=== PATIENT | male | born 1940 | race Hispanic/Latino ===

== ENCOUNTER 2018-04-04 02:42 | Emergency (ER) | payer MEDICARE, OTHER ==
[~2018-04-04] VITALS: Ht 175.3 cm; Wt 83.9 kg
[~2018-04-04 02:42] MED LIST: AMLODIPINE BESYL5 MG PO; LOSARTAN POTAS100 MG PO
[2018-04-04 02:59] LABS: INFLUENZAE A&B ANTIGEN (RAPID) NEGATIVE (NEGATIVE); STREPTOCOCCUS GRP A ANTIGEN NEGATIVE (NEGATIVE)
[2018-04-04] MEDS ORDERED: ACETAMINOPHEN/CODEINE 300MG - 30MG TAB PO ONE (03:15)
--- NOTE | 2018-04-04 04:33 | Diagnostic Imaging Report ---
EXAM: CHEST 2 VIEWS, PA and lateral INDICATION: Sore throat, productive cough COMPARISON: None FINDINGS: LINES/TUBES: None LUNGS: No consolidations or edema. PLEURA: No effusions or pneumothorax. HEART AND MEDIASTINUM: The heart is within normal size limits. Tortuous thoracic aorta. Enlarged main pulmonary arteries. BONES AND SOFT TISSUES: No acute findings. IMPRESSION: No evidence of a pneumonia. Signed by: Dr. Noemi Mike M.D. on 04/04/2018 4:29 AM
[2018-04-04] MEDS ORDERED: HYDROCODONE/CHLORPHENIRAMINE 5 ML LIQCR PO STA (04:35)
[2018-04-04 05:56] VITALS: BP 132/84
== END 2018-04-04 05:35 | disposition home or self-care (01) ==
LOC: ER 02:42
DX: R05 Cough (principal); J00 Acute nasopharyngitis [common cold]; J02.9 Acute pharyngitis, unspecified
CPT/HCPCS: 71046; 83518; 87070; 87400; 99283

== ENCOUNTER 2019-06-01 20:01 | Emergency (ER) | payer MEDICARE ==
[~2019-06-01] VITALS: Ht 175.3 cm; Wt 83.9 kg
--- OUTSIDE RECORDS SUMMARY | 2019-06-01 20:04 | XMS REPORT ---
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 Allergies, Adverse Reactions, Alerts This patient has no known allergies or adverse reactions. Medications This patient has no known medications. Results Test Description Test Time Test Comments Text Results Atomic Results Result Comments CHEST 2 VIEWS 2018-04-04 04:28:00 [place] [address] Patient Name: NEETA HERBERT JR MR #: [id number] : 1940 Age/Sex: 77/M Req #: [id number] Adm Physician: Ordered by: RONEL ALEJANDRE MD Report #: [id number] Location: ER Room/Bed: Procedure: [id number] DX/CHEST 2 VIEWS Exam Date: 04/04/18 Exam Time: 0400 REPORT STATUS: Signed EXAM: CHEST 2 VIEWS, PA and lateral INDICATION: Sore throat, productive cough COMPARISON: None FINDINGS: LINES/TUBES: None LUNGS: No consolidations or edema. PLEURA: No effusions or pneumothorax. HEART AND MEDIASTINUM: The heart is within normal size limits. Tortuous thoracic aorta. Enlarged main pulmonary arteries. BONES AND SOFT TISSUES: No acute findings. IMPRESSION: No evidence of a pneumonia. Si gned by: Dr. Maria Esther Mike M.D. on 04/04/2018 4:29 AM Dictated By: MARIA ESTHER MIKE MD 8 Transcribed By: ADELIA on 04/04/18428 COPY TO: RONEL ALEJANDRE MD
[2019-06-01 21:10] LABS: CLARITY,URINE CLEAR (CLEAR); COLOR,URINE YELLOW (YELLOW)
[2019-06-01 21:11] LABS: BILIRUBIN,URINE NEGATIVE (NEGATIVE); KETONES,URINE NEGATIVE (NEGATIVE); LEUKOCYTE ESTERASE ,URINE NEGATIVE (NEGATIVE); NITRITE,URINE NEGATIVE (NEGATIVE); PROTEIN,URINE DIPSTICK NEGATIVE (NEGATIVE); URINE UROBILINOGEN 0.2 mg/dL (0.2 - 1)
[2019-06-01 21:41] LABS: EPITHELIAL CELLS,URINE RARE /LPF; RBC,URINE 0-5 /HPF (0-5)
== END 2019-06-01 22:30 | disposition home or self-care (01) ==
LOC: ER 20:01
DX: R33.9 Retention of urine, unspecified (principal); I10 Essential (primary) hypertension
CPT/HCPCS: 51700; 81001; 87086; 99282

== ENCOUNTER 2020-11-11 10:08 | Emergency (ER) | payer MEDICARE ==
[~2020-11-11] VITALS: Ht 175.3 cm; Wt 83.9 kg
[2020-11-11 10:44] LABS: BASOPHILS # (AUTO) 0.1 (0.0-0.1); BASOPHILS % 0.9 % (0.0-1.0); EOSINOPHILS # (AUTO) 0.1 (0.0-0.4); EOSINOPHILS % 0.9 % (0.0-6.0); HEMATOCRIT 45.2 % (38.2-49.6); HEMOGLOBIN 14.8 g/dL (14.0-18.0); LYMPHOCYTES # (AUTO) 1.2 (1.0-3.2); LYMPHOCYTES % 21.5 % (18.0-39.1); MEAN CORPUSCULAR HEMOGLOBIN 29.8 pg (28-32); MEAN CORPUSCULAR HGB CONC 32.7 g/dL (31-35); MEAN CORPUSCULAR VOLUME 91.1 fL (81-99); MONOCYTES # (AUTO) 0.4 (0.2-0.8); MONOCYTES % 7.3 % (4.4-11.3); NEUTROPHILS # (AUTO) 3.9 (2.1-6.9); PLATELET COUNT 175 x10e3/uL (140-360); RED BLOOD COUNT 4.96 x10e6/uL (4.3-5.7); RED CELL DISTRIBUTION WIDTH 13.2 % (11.7-14.4)
[2020-11-11 11:04] LABS: ALBUMIN 3.9 g/dL (3.5-5.0); ALBUMIN/GLOBULIN RATIO 1.1 (0.8-2.0); ANION GAP 12.8 mmol/L (8-16); CALCIUM 8.5 mg/dL (8.4-10.2); CREATININE, SERUM 0.74 mg/dL (0.72-1.25); POTASSIUM 3.8 mmol/L (3.5-5.1)
[2020-11-11 11:11] LABS: CREATINE KINASE MB 1.1 ng/mL (0-5.0)
[2020-11-11 15:08] VITALS: BP 144/79
== END 2020-11-11 15:21 | disposition home or self-care (01) ==
LOC: ER 10:30
DX: R55 Syncope and collapse (principal); R42 Dizziness and giddiness; I10 Essential (primary) hypertension
CPT/HCPCS: 36415; 70450; 71045; 80053; 82550; 82553; 84484; 85025; 93005; 99284

== ENCOUNTER 2021-01-04 11:00 | Emergency (ER) | payer MEDICARE ==
[~2021-01-04] VITALS: Ht 175.3 cm; Wt 81.6 kg
[2021-01-04 11:26] LABS: BASOPHILS # (AUTO) 0.1 (0.0-0.1); BASOPHILS % 0.9 % (0.0-1.0); EOSINOPHILS # (AUTO) 0.1 (0.0-0.4); EOSINOPHILS % 0.9 % (0.0-6.0); HEMATOCRIT 46.5 % (38.2-49.6); HEMOGLOBIN 15.1 g/dL (14.0-18.0); LYMPHOCYTES # (AUTO) 1.6 (1.0-3.2); LYMPHOCYTES % 24.8 % (18.0-39.1); MEAN CORPUSCULAR HEMOGLOBIN 29.8 pg (28-32); MEAN CORPUSCULAR HGB CONC 32.5 g/dL (31-35); MEAN CORPUSCULAR VOLUME 91.9 fL (81-99); MONOCYTES # (AUTO) 0.4 (0.2-0.8); MONOCYTES % 6.4 % (4.4-11.3); NEUTROPHILS # (AUTO) 4.4 (2.1-6.9); NEUTROPHILS % 66.7 % (38.7-80.0); PLATELET COUNT 182 x10e3/uL (140-360); RED BLOOD COUNT 5.06 x10e6/uL (4.3-5.7); RED CELL DISTRIBUTION WIDTH 13.2 % (11.7-14.4)
[2021-01-04 11:35] LABS: CLARITY,URINE CLEAR (CLEAR); COLOR,URINE YELLOW (YELLOW); KETONES,URINE TRACE (NEGATIVE); LEUKOCYTE ESTERASE ,URINE NEGATIVE (NEGATIVE); NITRITE,URINE NEGATIVE (NEGATIVE); PROTEIN,URINE DIPSTICK NEGATIVE (NEGATIVE)
[2021-01-04 11:36] LABS: URINE UROBILINOGEN 0.2 mg/dL (0.2 - 1)
[2021-01-04 11:43] LABS: ALBUMIN 4.3 g/dL (3.5-5.0); ALBUMIN/GLOBULIN RATIO 1.3 (0.8-2.0); ANION GAP 13.5 mmol/L (8-16); CALCIUM 8.5 mg/dL (8.4-10.2); CREATININE, SERUM 0.84 mg/dL (0.72-1.25); POTASSIUM 3.5 mmol/L (3.5-5.1)
[2021-01-04 11:44] LABS: MUCUS,URINE FEW (RARE); RBC,URINE 0-5 /HPF (0-5); WBC,URINE (MAN) 0-5 /HPF (0-5)
[2021-01-04 11:51] LABS: CREATINE KINASE MB 0.9 ng/mL (0-5.0)
[2021-01-04 11:54] LABS: INR 0.97; PROTHROMBIN TIME 13.1 seconds (11.9-14.5)
[2021-01-04 11:55] LABS: PARTIAL THROMBOPLASTIN TIME 31.3 seconds (23.8-35.5)
[2021-01-04 13:42] VITALS: BP 143/83
== END 2021-01-04 13:45 | disposition home or self-care (01) ==
LOC: ER 11:22
DX: R42 Dizziness and giddiness (principal); R51.9 Headache, unspecified; E78.5 Hyperlipidemia, unspecified; R94.31 Abnormal electrocardiogram [ECG] [EKG]; Z20.822 Contact with and (suspected) exposure to COVID-19
CPT/HCPCS: 36415; 70450; 71045; 80053; 81001; 82550; 82553; 83735; 84484; 85025; 85610; 85730; 93005; 99284; U0002

== ENCOUNTER → 2021-03-17 | Day surgery (SDC) | payer MEDICARE ==
[2021-03-12 14:15] LABS: BASOPHILS # (AUTO) 0.1 (0.0-0.1); BASOPHILS % 0.9 % (0.0-1.0); EOSINOPHILS # (AUTO) 0.1 (0.0-0.4); EOSINOPHILS % 1.4 % (0.0-6.0); HEMATOCRIT 46.2 % (38.2-49.6); HEMOGLOBIN 14.8 g/dL (14.0-18.0); LYMPHOCYTES # (AUTO) 1.3 (1.0-3.2); LYMPHOCYTES % 22.6 % (18.0-39.1); MEAN CORPUSCULAR HEMOGLOBIN 30.2 pg (28-32); MEAN CORPUSCULAR VOLUME 94.3 fL (81-99); MONOCYTES # (AUTO) 0.5 (0.2-0.8); MONOCYTES % 7.8 % (4.4-11.3); NEUTROPHILS # (AUTO) 3.9 (2.1-6.9); NEUTROPHILS % 67.1 % (38.7-80.0); PLATELET COUNT 172 x10e3/uL (140-360); RED CELL DISTRIBUTION WIDTH 13.5 % (11.7-14.4)
[2021-03-12 14:37] LABS: ALBUMIN 3.9 g/dL (3.5-5.0); ALBUMIN/GLOBULIN RATIO 1.2 (0.8-2.0); ALKALINE PHOSPHATASE 86 IU/L (40-150); ANION GAP 15.7 mmol/L (8-16); BLOOD UREA NITROGEN 11 mg/dL (7-26); BUN/CREATININE RATIO 11 (6-25); CALCIUM 8.8 mg/dL (8.4-10.2); CARBON DIOXIDE 26 mmol/L (22-29); CHLORIDE 105 mmol/L (98-107); CREATININE, SERUM 0.96 mg/dL (0.72-1.25); EST GLOMERULAR FILTRATION RATE 76 ML/MIN (60-); GLUCOSE 92 mg/dL (74-118); POTASSIUM 4.7 mmol/L (3.5-5.1); SODIUM 142 mmol/L (136-145)
[2021-03-12 14:39] LABS: ALANINE AMINOTRANSFERASE < 6 IU/L (0-55)
[~2021-03-17] VITALS: Ht 172.7 cm; Wt 81.6 kg
[2021-03-17] VITALS (9 sets, daily range): BP systolic 132–186; BP diastolic 79–103
[~2021-03-17] MED LIST changes: +ALPRAZOLAM 0.5 MG TAB ONE; +ATORVASTATIN CA40 MG PO; +DIPHENHYDRAMINE HCL 25 MG CAP ONE; +FENTANYL CITRATE/PF 100MCG/2 ML INJ ONE; +HEPARIN SOD (PORCINE) 1000 UNIT/ML 30ML ONE; +HEPARIN SOD/SOD CHLORIDE 2,000 ML ONE; +IOPAMIDOL 370 MG/ML 200 ML INFUS..BTL INJ ONE; +LIDOCAINE HCL 2% LOCAL 20 ML VIAL ONE; +METOPROLOL SUCC50 MG PO; +MIDAZOLAM HCL 2 MG/2 ML VIAL ONE; +NITROGLYCERIN/D5W 200 MCG/ML 250 ML ONE; +SODIUM CHLORIDE 0.9% 1000ML 1,000 ML ONE; +VERAPAMIL HCL 2.5 MG/ML 2 ML VIAL ONE
== END | disposition home or self-care (01) ==
LOC: CATH LAB 11:05
PROVIDERS: ATTEND Internal Medicine Interventional Cardiology
DX: I25.119 Atherosclerotic heart disease of native coronary artery with unspecified angina pectoris (principal); I50.22 Chronic systolic (congestive) heart failure; R03.0 Elevated blood-pressure reading, without diagnosis of hypertension; Z01.812 Encounter for preprocedural laboratory examination; Z20.822 Contact with and (suspected) exposure to COVID-19; Z79.899 Other long term (current) drug therapy; Z82.49 Family history of ischemic heart disease and other diseases of the circulatory system
CPT/HCPCS: 36415; 76937; 80053; 83880; 85025; 93458; C1887; C1894; J1644; J2001; J2250; J3010; J7030; Q9967; U0002; 99152; 99153

== ENCOUNTER 2021-03-24 18:13 | Inpatient (IN) | payer MEDICARE ==
[~2021-03-24] VITALS: Ht 172.7 cm; Wt 76.2 kg
[~2021-03-24 18:13] MED LIST changes: -ALPRAZOLAM 0.5 MG TAB ONE; -ATORVASTATIN CA40 MG PO; -DIPHENHYDRAMINE HCL 25 MG CAP ONE; -FENTANYL CITRATE/PF 100MCG/2 ML INJ ONE; -HEPARIN SOD (PORCINE) 1000 UNIT/ML 30ML ONE; -HEPARIN SOD/SOD CHLORIDE 2,000 ML ONE; -IOPAMIDOL 370 MG/ML 200 ML INFUS..BTL INJ ONE; -LIDOCAINE HCL 2% LOCAL 20 ML VIAL ONE; -MIDAZOLAM HCL 2 MG/2 ML VIAL ONE; -NITROGLYCERIN/D5W 200 MCG/ML 250 ML ONE; -SODIUM CHLORIDE 0.9% 1000ML 1,000 ML ONE; -VERAPAMIL HCL 2.5 MG/ML 2 ML VIAL ONE
[2021-03-24] MEDS ORDERED: SODIUM CHLORIDE 0.9% 1000ML 1,000 ML IV STA (18:22)
[2021-03-24 18:41] LABS: BASOPHILS # (AUTO) 0.1 (0.0-0.1); EOSINOPHILS # (AUTO) 0.1 (0.0-0.4); EOSINOPHILS % 1.6 % (0.0-6.0); HEMOGLOBIN 15.4 g/dL (14.0-18.0); LYMPHOCYTES # (AUTO) 1.7 (1.0-3.2); LYMPHOCYTES % 25.5 % (18.0-39.1); MEAN CORPUSCULAR HEMOGLOBIN 30.1 pg (28-32); MEAN CORPUSCULAR HGB CONC 32.1 g/dL (31-35); MEAN CORPUSCULAR VOLUME 93.8 fL (81-99); MONOCYTES # (AUTO) 0.5 (0.2-0.8); MONOCYTES % 7.5 % (4.4-11.3); NEUTROPHILS # (AUTO) 4.3 (2.1-6.9); NEUTROPHILS % 64.1 % (38.7-80.0); PLATELET COUNT 180 x10e3/uL (140-360); RED BLOOD COUNT 5.12 x10e6/uL (4.3-5.7); RED CELL DISTRIBUTION WIDTH 13.2 % (11.7-14.4)
[2021-03-24 19:02] LABS: ALBUMIN 3.8 g/dL (3.5-5.0); ALBUMIN/GLOBULIN RATIO 1.2 (0.8-2.0); ALKALINE PHOSPHATASE 91 IU/L (40-150); ANION GAP 13.9 mmol/L (8-16); BLOOD UREA NITROGEN 12 mg/dL (7-26); BUN/CREATININE RATIO 13 (6-25); CALCIUM 8.1 mg/dL (8.4-10.2); CARBON DIOXIDE 24 mmol/L (22-29); CHLORIDE 107 mmol/L (98-107); CREATININE, SERUM 0.89 mg/dL (0.72-1.25); EST GLOMERULAR FILTRATION RATE 82 ML/MIN (60-); GLUCOSE 109 mg/dL (74-118); LIPASE 17 U/L (8-78); POTASSIUM 3.9 mmol/L (3.5-5.1); SODIUM 141 mmol/L (136-145)
[2021-03-24 19:03] LABS: ALANINE AMINOTRANSFERASE < 6 IU/L (0-55)
[2021-03-24] MEDS ORDERED: SODIUM CHLORIDE 0.9% 50ML 50 ML ONE (19:25)
[2021-03-24] MEDS ORDERED: IOPAMIDOL 370 MG/ML 200 ML INFUS..BTL INJ ONE (19:26)
[2021-03-24 22:26] LABS: BASOPHILS # (AUTO) 0.1 (0.0-0.1); BASOPHILS % 0.8 % (0.0-1.0); EOSINOPHILS # (AUTO) 0.1 (0.0-0.4); EOSINOPHILS % 0.7 % (0.0-6.0); HEMATOCRIT 45.8 % (38.2-49.6); HEMOGLOBIN 14.8 g/dL (14.0-18.0); LYMPHOCYTES # (AUTO) 1.4 (1.0-3.2); LYMPHOCYTES % 18.5 % (18.0-39.1); MEAN CORPUSCULAR HEMOGLOBIN 30.1 pg (28-32); MEAN CORPUSCULAR HGB CONC 32.3 g/dL (31-35); MEAN CORPUSCULAR VOLUME 93.3 fL (81-99); MONOCYTES # (AUTO) 0.5 (0.2-0.8); MONOCYTES % 6.3 % (4.4-11.3); NEUTROPHILS # (AUTO) 5.6 (2.1-6.9); NEUTROPHILS % 73.6 % (38.7-80.0); PLATELET COUNT 194 x10e3/uL (140-360); RED BLOOD COUNT 4.91 x10e6/uL (4.3-5.7); RED CELL DISTRIBUTION WIDTH 13.2 % (11.7-14.4)
[2021-03-24 22:30] VITALS: BP 154/90
[2021-03-24 23:00] VITALS: BP 154/90
[2021-03-24 23:15] VITALS: BP 154/90
[2021-03-24] MEDS: SODIUM CHLORIDE 0.9% 1000ML 1,000 ML IV SCH (23:50)
[2021-03-25] VITALS (24 sets, daily range): BP systolic 120–161; BP diastolic 68–99
[2021-03-25 02:01] LABS: HEMATOCRIT 38.2 % (38.2-49.6); HEMOGLOBIN 12.3 g/dL (14.0-18.0)
[2021-03-25 02:10] LABS: INR 1.05; PARTIAL THROMBOPLASTIN TIME 30.9 seconds (23.8-35.5); PROTHROMBIN TIME 14.6 seconds (11.9-14.5)
[2021-03-25] MEDS ORDERED: LIDOCAINE HCL 2% LOCAL 20 ML VIAL ONE (04:08)
[2021-03-25] MEDS ORDERED: FENTANYL CITRATE/PF 100MCG/2 ML INJ ONE (04:08)
[2021-03-25] MEDS ORDERED: MIDAZOLAM HCL 2 MG/2 ML VIAL ONE (04:08)
[2021-03-25] MEDS ORDERED: SODIUM CHLORIDE 0.9% 1000ML 1,000 ML ONE (04:09)
[2021-03-25] MEDS ORDERED: IOPAMIDOL 300MG/ML 100 ML INFUS..BTL IV ONE ×2 (04:54→05:24)
[2021-03-25] MEDS ORDERED: PHYTONADIONE 10 MG/ML AMP IV ONE (10:00)
[2021-03-25] MEDS ORDERED: PHYTONADIONE 10MG/ML 20 MG in SODIUM CHLORIDE 0.9% 50ML 50 ML IV ONE (10:25)
[2021-03-25] MEDS ORDERED: ATORVASTATIN CA40 MG PO (11:05)
[2021-03-25] MEDS: LOSARTAN POTASSIUM 100 MG TAB PO SCH (11:15)
[2021-03-25 12:23] LABS: HEMATOCRIT 35.3 % (38.2-49.6); HEMOGLOBIN 11.1 g/dL (14.0-18.0)
[2021-03-25] MEDS: SODIUM CHLORIDE 0.9% 1000ML 1,000 ML IV SCH ×2 (17:55→20:06)
[2021-03-25] MEDS: BISACODYL 5 MG TAB EC PO PRN ×2 (20:06→21:37)
[2021-03-25] MEDS: ATORVASTATIN 40 MG TAB PO SCH (20:12)
[2021-03-26] VITALS (26 sets, daily range): BP systolic 89–174; BP diastolic 49–114
[2021-03-26] MEDS: SODIUM CHLORIDE 0.9% 1000ML 1,000 ML IV SCH ×3 (04:45→19:24)
[2021-03-26] MEDS ORDERED: CITRATE OF MAGNESIA 300ML BOTTLE PO ONE ×2 (05:00→07:00)
[2021-03-26 05:05] LABS: BASOPHILS # (AUTO) 0.1 (0.0-0.1); BASOPHILS % 0.7 % (0.0-1.0); EOSINOPHILS # (AUTO) 0.1 (0.0-0.4); EOSINOPHILS % 1.2 % (0.0-6.0); HEMATOCRIT 31.9 % (38.2-49.6); HEMOGLOBIN 10.2 g/dL (14.0-18.0); LYMPHOCYTES # (AUTO) 1.1 (1.0-3.2); LYMPHOCYTES % 14.6 % (18.0-39.1); MEAN CORPUSCULAR HEMOGLOBIN 30.2 pg (28-32); MEAN CORPUSCULAR VOLUME 94.4 fL (81-99); MONOCYTES # (AUTO) 0.5 (0.2-0.8); MONOCYTES % 6.3 % (4.4-11.3); NEUTROPHILS # (AUTO) 5.6 (2.1-6.9); NEUTROPHILS % 76.9 % (38.7-80.0); PLATELET COUNT 158 x10e3/uL (140-360); RED BLOOD COUNT 3.38 x10e6/uL (4.3-5.7); RED CELL DISTRIBUTION WIDTH 13.4 % (11.7-14.4)
[2021-03-26 05:17] LABS: INR 1.08; PROTHROMBIN TIME 14.9 seconds (11.9-14.5)
[2021-03-26 05:33] LABS: ALBUMIN/GLOBULIN RATIO 1.3 (0.8-2.0); ALKALINE PHOSPHATASE 67 IU/L (40-150); ANION GAP 11.4 mmol/L (8-16); BLOOD UREA NITROGEN 9 mg/dL (7-26); BUN/CREATININE RATIO 11 (6-25); CALCIUM 7.9 mg/dL (8.4-10.2); CARBON DIOXIDE 25 mmol/L (22-29); CHLORIDE 109 mmol/L (98-107); CREATININE, SERUM 0.79 mg/dL (0.72-1.25); EST GLOMERULAR FILTRATION RATE 95 ML/MIN (60-); GLUCOSE 112 mg/dL (74-118); POTASSIUM 3.4 mmol/L (3.5-5.1); SODIUM 142 mmol/L (136-145)
[2021-03-26 06:28] LABS: ALANINE AMINOTRANSFERASE < 6 IU/L (0-55)
[2021-03-26] MEDS ORDERED: ONDANSETRON HCL INJ 2MG/ML 2ML 2 MG/ML VIAL IV PRN (07:45)
[2021-03-26] MEDS ORDERED: METOPROLOL SUCCINATE 50 MG TAB XL PO SCH (09:00)
[2021-03-26] MEDS ORDERED: PHYTONADIONE 10 MG/ML AMP IV ONE (09:00)
[2021-03-26] MEDS ORDERED: MIDAZOLAM HCL 2 MG/2 ML VIAL ONE (13:56)
[2021-03-26] MEDS ORDERED: FENTANYL CITRATE/PF 100MCG/2 ML INJ ONE (13:56)
[2021-03-26] MEDS ORDERED: SODIUM CHLORIDE 0.9% 250ML 250 ML ONE ×3 (14:07→21:17)
[2021-03-26] MEDS ORDERED: HYOSCYAMINE SULFATE 0.5 MG/ML INJ ONE (16:03)
[2021-03-26] MEDS ORDERED: PROPOFOL IV EMULSION 10 MG/ML 20 ML VIAL ONE (17:27)
[2021-03-26] MEDS ORDERED: GLUCAGON FOR INJ 1 MG VIAL ONE (17:27)
[2021-03-26] MEDS: ATORVASTATIN 40 MG TAB PO SCH (20:02)
[2021-03-26] MEDS: LOSARTAN POTASSIUM 100 MG TAB PO SCH (20:15)
[2021-03-27] VITALS (16 sets, daily range): BP systolic 117–152; BP diastolic 65–88
[2021-03-27 05:00] LABS: HEMATOCRIT 25.9 % (38.2-49.6); HEMOGLOBIN 8.2 g/dL (14.0-18.0); MEAN CORPUSCULAR HGB CONC 31.7 g/dL (31-35); MEAN CORPUSCULAR VOLUME 94.9 fL (81-99); PLATELET COUNT 141 x10e3/uL (140-360); RED BLOOD COUNT 2.73 x10e6/uL (4.3-5.7); RED CELL DISTRIBUTION WIDTH 13.3 % (11.7-14.4)
[2021-03-27 05:17] LABS: INR 1.06; PROTHROMBIN TIME 14.7 seconds (11.9-14.5)
[2021-03-27] MEDS: SODIUM CHLORIDE 0.9% 1000ML 1,000 ML IV SCH ×2 (05:24→12:45)
[2021-03-27 05:26] LABS: ALBUMIN 3.2 g/dL (3.5-5.0); ALBUMIN/GLOBULIN RATIO 1.5 (0.8-2.0); ANION GAP 12.3 mmol/L (8-16); CALCIUM 7.6 mg/dL (8.4-10.2); CREATININE, SERUM 0.76 mg/dL (0.72-1.25); POTASSIUM 3.3 mmol/L (3.5-5.1)
[2021-03-27 08:51] LABS: EOSINOPHILS % (MANUAL) 1 % (0-7); LYMPHOCYTES % (MANUAL) 20 % (19-48); MONOCYTES % (MANUAL) 3 % (3.4-9.0); NEUTROPHILS % (MANUAL) 76 % (40-74); PLATELET ESTIMATE SLIGHTLY DECREASED
[2021-03-27 08:52] LABS: PLATELET MORPHOLOGY COMMENT NORMAL; RBC MORPHOLOGY COMMENT NORMAL
[2021-03-27] MEDS: LOSARTAN POTASSIUM 100 MG TAB PO SCH (08:52)
[2021-03-27] MEDS ORDERED: PHYTONADIONE 5 MG TAB PO ONE (10:15)
[2021-03-27] MEDS ORDERED: PHYTONADIONE 10MG/ML 20 MG in SODIUM CHLORIDE 0.9% 50ML 50 ML IV ONE (10:45)
[2021-03-27] MEDS ORDERED: MIDAZOLAM HCL 2 MG/2 ML VIAL ONE (14:25)
[2021-03-27] MEDS ORDERED: FENTANYL CITRATE/PF 100MCG/2 ML INJ ONE (14:25)
[2021-03-27] MEDS ORDERED: SODIUM CHLORIDE 0.9% 1000ML 1,000 ML ONE (14:39)
[2021-03-27] MEDS ORDERED: IOPAMIDOL 300MG/ML 100 ML INFUS..BTL IV ONE (14:39)
[2021-03-27] MEDS ORDERED: LIDOCAINE HCL 1% LOCAL INJ 20 ML VIAL ONE (14:42)
[2021-03-27] MEDS ORDERED: POTASSIUM CHLORIDE 20MEQ/100ML 100 ML IV PRN (15:30)
[2021-03-27 17:07] LABS: HEMATOCRIT 25.9 % (38.2-49.6); HEMOGLOBIN 8.1 g/dL (14.0-18.0)
[2021-03-27] MEDS ORDERED: SODIUM CHLORIDE 0.9% 250ML 250 ML ONE (21:31)
[2021-03-27] MEDS: ATORVASTATIN 40 MG TAB PO SCH (22:05)
[2021-03-28] VITALS (26 sets, daily range): BP systolic 126–162; BP diastolic 75–92
[2021-03-28 00:23] LABS: INR 1.05; PROTHROMBIN TIME 14.5 seconds (11.9-14.5)
[2021-03-28] MEDS: SODIUM CHLORIDE 0.9% 1000ML 1,000 ML IV SCH ×4 (04:27→20:45)
[2021-03-28 06:37] LABS: BASOPHILS # (AUTO) 0.1 (0.0-0.1); BASOPHILS % 0.8 % (0.0-1.0); EOSINOPHILS # (AUTO) 0.2 (0.0-0.4); EOSINOPHILS % 2.5 % (0.0-6.0); HEMATOCRIT 28.9 % (38.2-49.6); HEMOGLOBIN 9.4 g/dL (14.0-18.0); LYMPHOCYTES # (AUTO) 1.1 (1.0-3.2); MEAN CORPUSCULAR HEMOGLOBIN 30.1 pg (28-32); MEAN CORPUSCULAR HGB CONC 32.5 g/dL (31-35); MEAN CORPUSCULAR VOLUME 92.6 fL (81-99); MONOCYTES # (AUTO) 0.4 (0.2-0.8); NEUTROPHILS # (AUTO) 4.3 (2.1-6.9); PLATELET COUNT 127 x10e3/uL (140-360); RED BLOOD COUNT 3.12 x10e6/uL (4.3-5.7); RED CELL DISTRIBUTION WIDTH 14.2 % (11.7-14.4)
[2021-03-28 06:56] LABS: ALANINE AMINOTRANSFERASE 8 IU/L (0-55); ALBUMIN 3.4 g/dL (3.5-5.0); ALBUMIN/GLOBULIN RATIO 1.5 (0.8-2.0); ALKALINE PHOSPHATASE 67 IU/L (40-150); ANION GAP 12.6 mmol/L (8-16); CALCIUM 7.6 mg/dL (8.4-10.2); CARBON DIOXIDE 28 mmol/L (22-29); CHLORIDE 107 mmol/L (98-107); CREATININE, SERUM 0.72 mg/dL (0.72-1.25); EST GLOMERULAR FILTRATION RATE 105 ML/MIN (60-); GLUCOSE 104 mg/dL (74-118); POTASSIUM 3.6 mmol/L (3.5-5.1); SODIUM 144 mmol/L (136-145)
[2021-03-28 07:00] LABS: BUN/CREATININE RATIO 7 (6-25)
[2021-03-28 07:18] LABS: BLOOD UREA NITROGEN < 5 mg/dL (7-26)
[2021-03-28] MEDS: LOSARTAN POTASSIUM 100 MG TAB PO SCH (08:09)
[2021-03-28] MEDS ORDERED: PHYTONADIONE 10 MG/ML AMP IV ONE (09:30)
[2021-03-28] MEDS ORDERED: PHYTONADIONE 10MG/ML 20 MG in SODIUM CHLORIDE 0.9% 50ML 50 ML SC ONE (10:00)
[2021-03-28] MEDS ORDERED: SODIUM CHLORIDE 0.9% 250ML 250 ML ONE ×3 (10:27→21:40)
[2021-03-28] MEDS ORDERED: SODIUM CHLORIDE 0.9% 250ML 250 ML IV ONE (11:45)
[2021-03-28 15:53] LABS: HEMATOCRIT 28.8 % (38.2-49.6); HEMOGLOBIN 9.3 g/dL (14.0-18.0)
[2021-03-28] MEDS: ATORVASTATIN 40 MG TAB PO SCH (21:22)
[2021-03-29] VITALS (25 sets, daily range): BP systolic 108–163; BP diastolic 58–115
[2021-03-29 01:20] LABS: HEMATOCRIT 28.4 % (38.2-49.6)
[2021-03-29] MEDS ORDERED: METOPROLOL TARTRATE INJ 1 MG/ML VIAL IV PRN (02:00)
[2021-03-29 02:14] LABS: HEMOGLOBIN 9.4 g/dL (14.0-18.0)
[2021-03-29 05:50] LABS: ANION GAP 13.5 mmol/L (8-16); BLOOD UREA NITROGEN < 5 mg/dL (7-26); CALCIUM 8.5 mg/dL (8.4-10.2); CARBON DIOXIDE 28 mmol/L (22-29); CHLORIDE 106 mmol/L (98-107); CREATININE, SERUM 0.73 mg/dL (0.72-1.25); EST GLOMERULAR FILTRATION RATE 104 ML/MIN (60-); GLUCOSE 104 mg/dL (74-118); POTASSIUM 3.5 mmol/L (3.5-5.1); SODIUM 144 mmol/L (136-145)
[2021-03-29 06:21] LABS: BUN/CREATININE RATIO 7 (6-25)
[2021-03-29] MEDS: LOSARTAN POTASSIUM 100 MG TAB PO SCH (08:22)
[2021-03-29] MEDS: IRON SUCROSE 100 MG in SODIUM CHLORIDE 0.9% 100 ML 100 ML IV SCH (10:17)
[2021-03-29] MEDS ORDERED: POTASSIUM CHLORIDE 20 MEQ TAB CR PO ONE (16:30)
[2021-03-29] MEDS: METOPROLOL TARTRATE 25 MG TAB PO SCH (17:43)
[2021-03-29] MEDS: ATORVASTATIN 40 MG TAB PO SCH (21:10)
[2021-03-30] VITALS (12 sets, daily range): BP systolic 96–147; BP diastolic 55–83
[2021-03-30 06:19] LABS: BASOPHILS # (AUTO) 0.1 (0.0-0.1); BASOPHILS % 0.7 % (0.0-1.0); EOSINOPHILS # (AUTO) 0.2 (0.0-0.4); EOSINOPHILS % 2.2 % (0.0-6.0); HEMATOCRIT 31.6 % (38.2-49.6); HEMOGLOBIN 10.5 g/dL (14.0-18.0); LYMPHOCYTES % 13.7 % (18.0-39.1); MEAN CORPUSCULAR HEMOGLOBIN 30.3 pg (28-32); MEAN CORPUSCULAR HGB CONC 33.2 g/dL (31-35); MEAN CORPUSCULAR VOLUME 91.3 fL (81-99); MONOCYTES # (AUTO) 0.5 (0.2-0.8); MONOCYTES % 7.5 % (4.4-11.3); NEUTROPHILS # (AUTO) 5.5 (2.1-6.9); NEUTROPHILS % 75.6 % (38.7-80.0); PLATELET COUNT 184 x10e3/uL (140-360); RED BLOOD COUNT 3.46 x10e6/uL (4.3-5.7); RED CELL DISTRIBUTION WIDTH 13.9 % (11.7-14.4)
[2021-03-30 06:44] LABS: ANION GAP 12.7 mmol/L (8-16); CALCIUM 8.8 mg/dL (8.4-10.2); CREATININE, SERUM 0.72 mg/dL (0.72-1.25); POTASSIUM 3.7 mmol/L (3.5-5.1)
[2021-03-30] MEDS: IRON SUCROSE 100 MG in SODIUM CHLORIDE 0.9% 100 ML 100 ML IV SCH (09:39)
[2021-03-30] MEDS: LOSARTAN POTASSIUM 100 MG TAB PO SCH (09:39)
[2021-03-30] MEDS: METOPROLOL TARTRATE 25 MG TAB PO SCH ×2 (09:40→17:00)
[2021-03-30] MEDS ORDERED: LOPRESSOR25 MG PO (09:54)
[2021-03-30] MEDS: SODIUM CHLORIDE 0.9% 1000ML 1,000 ML IV SCH (21:16)
[2021-03-30] MEDS: ATORVASTATIN 40 MG TAB PO SCH (21:22)
[2021-03-31] VITALS: BP 108/57
[2021-03-31 04:00] VITALS: BP 118/76
[2021-03-31 04:55] LABS: BASOPHILS # (AUTO) 0.1 (0.0-0.1); BASOPHILS % 0.8 % (0.0-1.0); EOSINOPHILS # (AUTO) 0.2 (0.0-0.4); HEMOGLOBIN 9.9 g/dL (14.0-18.0); MEAN CORPUSCULAR HGB CONC 31.9 g/dL (31-35); MEAN CORPUSCULAR VOLUME 93.9 fL (81-99); MONOCYTES # (AUTO) 0.6 (0.2-0.8); MONOCYTES % 8.1 % (4.4-11.3); NEUTROPHILS # (AUTO) 5.7 (2.1-6.9); NEUTROPHILS % 75.7 % (38.7-80.0); PLATELET COUNT 193 x10e3/uL (140-360); RED CELL DISTRIBUTION WIDTH 13.7 % (11.7-14.4)
[2021-03-31 05:18] LABS: ANION GAP 11.9 mmol/L (8-16); CALCIUM 8.2 mg/dL (8.4-10.2); CREATININE, SERUM 0.82 mg/dL (0.72-1.25); POTASSIUM 3.9 mmol/L (3.5-5.1)
[2021-03-31 07:00] VITALS: BP 138/79
[2021-03-31 07:16] VITALS: BP 138/79
[2021-03-31] MEDS: IRON SUCROSE 100 MG in SODIUM CHLORIDE 0.9% 100 ML 100 ML IV SCH (07:34)
[2021-03-31] MEDS: LOSARTAN POTASSIUM 100 MG TAB PO SCH (07:34)
[2021-03-31] MEDS: METOPROLOL TARTRATE 25 MG TAB PO SCH (07:35)
[2021-03-31] MEDS ORDERED: TOPROL XL50 MG PO ×2 (08:38→08:46)
== END 2021-03-31 10:01 | disposition home or self-care (01) | DRG 378 ==
LOC: ER 18:26 → ERHOLD 20:47 → ICU 22:29 → OBSVTOIN 03-25 10:58 → MED/SURG2 03-27 05:01 → ICU 03-27 16:00
PROVIDERS: ADMIT Internal Medicine; ATTEND Internal Medicine
PROC: 02HV33Z Insertion of Infusion Device into Superior Vena Cava, Percutaneous Approach (ICD-10-PCS; 2021-03-25)
PROC: B4151ZZ Fluoroscopy of Inferior Mesenteric Artery using Low Osmolar Contrast (ICD-10-PCS; 2021-03-25)
PROC: B4141ZZ Fluoroscopy of Superior Mesenteric Artery using Low Osmolar Contrast (ICD-10-PCS; 2021-03-25)
PROC: 0DBN8ZZ Excision of Sigmoid Colon, Via Natural or Artificial Opening Endoscopic (ICD-10-PCS; 2021-03-26)
PROC: 30233L1 Transfusion of Nonautologous Fresh Plasma into Peripheral Vein, Percutaneous Approach (ICD-10-PCS; 2021-03-26)
PROC: 30233K1 Transfusion of Nonautologous Frozen Plasma into Peripheral Vein, Percutaneous Approach (ICD-10-PCS; 2021-03-26)
PROC: 0DBM8ZZ Excision of Descending Colon, Via Natural or Artificial Opening Endoscopic (ICD-10-PCS; principal; 2021-03-26 15:30)
PROC: B4151ZZ Fluoroscopy of Inferior Mesenteric Artery using Low Osmolar Contrast (ICD-10-PCS; 2021-03-27)
PROC: B4141ZZ Fluoroscopy of Superior Mesenteric Artery using Low Osmolar Contrast (ICD-10-PCS; 2021-03-27)
PROC: 30233N1 Transfusion of Nonautologous Red Blood Cells into Peripheral Vein, Percutaneous Approach (ICD-10-PCS; 2021-03-28)
PROC: 30233R1 Transfusion of Nonautologous Platelets into Peripheral Vein, Percutaneous Approach (ICD-10-PCS; 2021-03-28)
DX: K57.31 Diverticulosis of large intestine without perforation or abscess with bleeding (principal); I50.22 Chronic systolic (congestive) heart failure; I47.1 Supraventricular tachycardia; K63.5 Polyp of colon; K64.9 Unspecified hemorrhoids; I25.10 Atherosclerotic heart disease of native coronary artery without angina pectoris; I11.0 Hypertensive heart disease with heart failure; I44.7 Left bundle-branch block, unspecified; Z20.822 Contact with and (suspected) exposure to COVID-19
CPT/HCPCS: 36415; 36569; 71045; 74174; 74470; 75625; 75726; 76937; 80048; 80053; 82607; 82746; 83690; 83735; 85007; 85014; 85018; 85025; 85027; 85610; 85730; 86850; 86900; 86920; 88305; 93005; 94799; 97139; 99152; 99153; 99251; 99284; C1769; C1887; C1894; G0378; J1610; J1756; J1980; J2001; J2250; J2405; J3010; J3430; J3480; J7030; J7050; P9012; P9016; P9017; P9034; Q9967; U0002

== ENCOUNTER → 2021-04-29 | Day surgery (SDC) | payer MEDICARE ==
[2021-04-24 09:37] LABS: BASOPHILS % 0.8 % (0.0-1.0); EOSINOPHILS # (AUTO) 0.1 (0.0-0.4); EOSINOPHILS % 2.3 % (0.0-6.0); HEMATOCRIT 37.4 % (38.2-49.6); HEMOGLOBIN 11.2 g/dL (14.0-18.0); LYMPHOCYTES # (AUTO) 1.2 (1.0-3.2); LYMPHOCYTES % 22.8 % (18.0-39.1); MEAN CORPUSCULAR HEMOGLOBIN 28.6 pg (28-32); MEAN CORPUSCULAR HGB CONC 29.9 g/dL (31-35); MEAN CORPUSCULAR VOLUME 95.7 fL (81-99); MONOCYTES # (AUTO) 0.4 (0.2-0.8); MONOCYTES % 7.1 % (4.4-11.3); NEUTROPHILS # (AUTO) 3.5 (2.1-6.9); NEUTROPHILS % 66.8 % (38.7-80.0); PLATELET COUNT 187 x10e3/uL (140-360); RED BLOOD COUNT 3.91 x10e6/uL (4.3-5.7); RED CELL DISTRIBUTION WIDTH 13.2 % (11.7-14.4)
[2021-04-24 10:07] LABS: ANION GAP 7.1 mmol/L (8-16); CALCIUM 9.1 mg/dL (8.4-10.2); CREATININE, SERUM 0.8 mg/dL (0.72-1.25); POTASSIUM 4.1 mmol/L (3.5-5.1)
[2021-04-24 10:14] LABS: INR 0.99; PROTHROMBIN TIME 13.8 seconds (11.9-14.5)
[2021-04-29] VITALS (9 sets, daily range): BP systolic 138–174; BP diastolic 72–91
[~2021-04-29] VITALS: Ht 172.7 cm; Wt 77.1 kg
[~2021-04-29] MED LIST changes: +ATORVASTATIN CA40 MG PO; +FENTANYL CITRATE/PF 100MCG/2 ML INJ ONE; +GENTAMICIN SULFATE 40 MG/ML 2 ML VIAL ONE; +LIDOCAINE HCL 2% LOCAL 20 ML VIAL ONE; +LOPRESSOR25 MG PO; +MIDAZOLAM HCL 2 MG/2 ML VIAL ONE; +SODIUM CHLORIDE 0.9% 1000ML 2,000 ML ONE; +SODIUM CHLORIDE 0.9% 250ML 0 ML ONE; +SODIUM CHLORIDE 0.9% 250ML 250 ML ONE; +SODIUM CHLORIDE 0.9% 500ML 500 ML ONE; +TOPROL XL50 MG PO; +Vancomycin IV 1 GM VIAL ONE
== END | disposition home or self-care (01) ==
LOC: CATH LAB 07:41
PROVIDERS: ATTEND Internal Medicine
DX: I11.0 Hypertensive heart disease with heart failure (principal); I50.42 Chronic combined systolic (congestive) and diastolic (congestive) heart failure; I25.2 Old myocardial infarction; I25.5 Ischemic cardiomyopathy; I44.7 Left bundle-branch block, unspecified; Z01.812 Encounter for preprocedural laboratory examination; Z20.822 Contact with and (suspected) exposure to COVID-19; Z79.899 Other long term (current) drug therapy
CPT/HCPCS: 33225; 33249; 36415; 71045; 75820; 80048; 85025; 85610; C1769 ×2; J1580; J2001; J2250; J3010; J3370; J7030; J7040; J7050; U0002; 99152; 99153

== ENCOUNTER 2021-05-04 10:32 | Emergency (ER) | payer MEDICARE ==
[~2021-05-04] VITALS: Ht 172.7 cm; Wt 77.1 kg
[~2021-05-04 10:32] MED LIST changes: -FENTANYL CITRATE/PF 100MCG/2 ML INJ ONE; -GENTAMICIN SULFATE 40 MG/ML 2 ML VIAL ONE; -LIDOCAINE HCL 2% LOCAL 20 ML VIAL ONE; -MIDAZOLAM HCL 2 MG/2 ML VIAL ONE; -SODIUM CHLORIDE 0.9% 1000ML 2,000 ML ONE; -SODIUM CHLORIDE 0.9% 250ML 0 ML ONE; -SODIUM CHLORIDE 0.9% 250ML 250 ML ONE; -SODIUM CHLORIDE 0.9% 500ML 500 ML ONE; -Vancomycin IV 1 GM VIAL ONE
[2021-05-04] MEDS ORDERED: DILTIAZEM HCL 5 MG/ML 5 ML VIAL IV STA ×2 (10:50→11:22)
[2021-05-04 10:56] LABS: BASOPHILS # (AUTO) 0.1 (0.0-0.1); BASOPHILS % 0.9 % (0.0-1.0); EOSINOPHILS % 0.6 % (0.0-6.0); HEMATOCRIT 42.4 % (38.2-49.6); HEMOGLOBIN 12.8 g/dL (14.0-18.0); LYMPHOCYTES # (AUTO) 1.1 (1.0-3.2); MEAN CORPUSCULAR HEMOGLOBIN 28.1 pg (28-32); MEAN CORPUSCULAR HGB CONC 30.2 g/dL (31-35); MONOCYTES # (AUTO) 0.4 (0.2-0.8); MONOCYTES % 5.4 % (4.4-11.3); NEUTROPHILS # (AUTO) 5.5 (2.1-6.9); NEUTROPHILS % 77.8 % (38.7-80.0); PLATELET COUNT 168 x10e3/uL (140-360); RED BLOOD COUNT 4.56 x10e6/uL (4.3-5.7); RED CELL DISTRIBUTION WIDTH 13.1 % (11.7-14.4)
[2021-05-04] MEDS ORDERED: METOPROLOL TARTRATE INJ 1 MG/ML VIAL IV STA (11:04)
[2021-05-04] MEDS ORDERED: METOPROLOL TARTRATE INJ 1 MG/ML VIAL ONE (11:13)
[2021-05-04 11:14] LABS: ALANINE AMINOTRANSFERASE 7 IU/L (0-55); ALBUMIN 3.8 g/dL (3.5-5.0); ALKALINE PHOSPHATASE 118 IU/L (40-150); ANION GAP 16.6 mmol/L (8-16); BLOOD UREA NITROGEN 11 mg/dL (7-26); BUN/CREATININE RATIO 11 (6-25); CALCIUM 9.6 mg/dL (8.4-10.2); CARBON DIOXIDE 25 mmol/L (22-29); CHLORIDE 105 mmol/L (98-107); CREATINE KINASE 245 IU/L (30-200); CREATININE, SERUM 0.99 mg/dL (0.72-1.25); EST GLOMERULAR FILTRATION RATE 73 ML/MIN (60-); GLUCOSE 126 mg/dL (74-118); POTASSIUM 3.6 mmol/L (3.5-5.1); SODIUM 143 mmol/L (136-145)
[2021-05-04] MEDS ORDERED: DIGOXIN INJ 0.25 MG/ML 2 ML AMP IV STA (11:22)
[2021-05-04 13:30] VITALS: BP 140/81
[2021-05-04 16:57] LABS: PROTHROMBIN TIME 11.1 seconds (11.9-14.5)
[2021-05-04 17:29] LABS: PARTIAL THROMBOPLASTIN TIME 27.4 seconds (23.8-35.5)
== END 2021-05-04 13:32 | disposition home or self-care (01) ==
LOC: ER 10:37
DX: I47.1 Supraventricular tachycardia (principal); I10 Essential (primary) hypertension; I50.9 Heart failure, unspecified; I48.91 Unspecified atrial fibrillation; R94.31 Abnormal electrocardiogram [ECG] [EKG]
CPT/HCPCS: 36415; 71045; 80053; 82550; 82553; 83735; 83880; 84484; 85025; 85610; 85730; 93005; 99284; J1160

== ENCOUNTER → 2021-06-17 | Day surgery (SDC) | payer MEDICARE ==
[2021-06-15 11:45] LABS: BASOPHILS # (AUTO) 0.1 (0.0-0.1); BASOPHILS % 1.5 % (0.0-1.0); EOSINOPHILS # (AUTO) 0.1 (0.0-0.4); HEMOGLOBIN 12.8 g/dL (14.0-18.0); LYMPHOCYTES # (AUTO) 1.2 (1.0-3.2); LYMPHOCYTES % 26.6 % (18.0-39.1); MEAN CORPUSCULAR HEMOGLOBIN 27.5 pg (28-32); MEAN CORPUSCULAR HGB CONC 31.2 g/dL (31-35); MONOCYTES # (AUTO) 0.4 (0.2-0.8); NEUTROPHILS # (AUTO) 2.8 (2.1-6.9); NEUTROPHILS % 60.7 % (38.7-80.0); PLATELET COUNT 153 x10e3/uL (140-360); RED BLOOD COUNT 4.66 x10e6/uL (4.3-5.7)
[~2021-06-17] MED LIST changes: +ASPIRIN81 MG PO; +GLUCAGON FOR INJ 1 MG VIAL ONE; +HYDROCHLOROTHIA25 MG PO; +HYOSCYAMINE SULFATE 0.5 MG/ML INJ ONE; +LIDOCAINE HCL 2% LOCAL INJ 5 ML SDV VIAL INJ ONE; +POVIDONE IODINE 0.05% 0.05 % ML PO ONE; +PRESERVISION A1 EAC3 PO; +PROPOFOL IV EMULSION 10 MG/ML 20 ML VIAL ONE; +VIT B12 INJ
[2021-06-17 14:00] VITALS: BP 120/80
== END | disposition home or self-care (01) ==
LOC: OR 11:14
PROVIDERS: ATTEND Internal Medicine Gastroenterology
DX: D12.2 Benign neoplasm of ascending colon (principal); K57.30 Diverticulosis of large intestine without perforation or abscess without bleeding; K64.8 Other hemorrhoids; I10 Essential (primary) hypertension; E78.5 Hyperlipidemia, unspecified; Z01.810 Encounter for preprocedural cardiovascular examination; Z01.812 Encounter for preprocedural laboratory examination; Z20.822 Contact with and (suspected) exposure to COVID-19; Z79.82 Long term (current) use of aspirin; Z79.899 Other long term (current) drug therapy; Z95.810 Presence of automatic (implantable) cardiac defibrillator
CPT/HCPCS: 36415; 45384; 45385; 85025; 93005; J1610; J1980; J2001; J2704; U0002

== ENCOUNTER 2021-08-11 10:09 | Emergency (ER) | payer MEDICARE ==
[~2021-08-11] VITALS: Ht 172.7 cm; Wt 77.1 kg
[~2021-08-11 10:09] MED LIST changes: -GLUCAGON FOR INJ 1 MG VIAL ONE; -HYOSCYAMINE SULFATE 0.5 MG/ML INJ ONE; -LIDOCAINE HCL 2% LOCAL INJ 5 ML SDV VIAL INJ ONE; -POVIDONE IODINE 0.05% 0.05 % ML PO ONE; -PROPOFOL IV EMULSION 10 MG/ML 20 ML VIAL ONE
[2021-08-11 11:03] LABS: BASOPHILS % 0.9 % (0.0-1.0); EOSINOPHILS # (AUTO) 0.1 (0.0-0.4); EOSINOPHILS % 1.8 % (0.0-6.0); HEMATOCRIT 41.9 % (38.2-49.6); HEMOGLOBIN 13.4 g/dL (14.0-18.0); LYMPHOCYTES # (AUTO) 1.2 (1.0-3.2); LYMPHOCYTES % 26.9 % (18.0-39.1); MEAN CORPUSCULAR HEMOGLOBIN 27.7 pg (28-32); MEAN CORPUSCULAR VOLUME 86.6 fL (81-99); MONOCYTES # (AUTO) 0.3 (0.2-0.8); MONOCYTES % 6.6 % (4.4-11.3); NEUTROPHILS # (AUTO) 2.9 (2.1-6.9); NEUTROPHILS % 63.6 % (38.7-80.0); PLATELET COUNT 172 x10e3/uL (140-360); RED BLOOD COUNT 4.84 x10e6/uL (4.3-5.7); RED CELL DISTRIBUTION WIDTH 16.4 % (11.7-14.4)
[2021-08-11 11:23] LABS: ALBUMIN 3.7 g/dL (3.5-5.0); ALBUMIN/GLOBULIN RATIO 0.9 (0.8-2.0); ANION GAP 13.5 mmol/L (8-16); CALCIUM 8.5 mg/dL (8.4-10.2); POTASSIUM 3.5 mmol/L (3.5-5.1)
[2021-08-11] MEDS ORDERED: IOPAMIDOL 370 MG/ML 100 ML INFUS..BTL INJ ONE (11:47)
[2021-08-11 15:02] LABS: HEMOGLOBIN 13.4 g/dL (14.0-18.0)
[2021-08-11 15:03] LABS: HEMATOCRIT 41.7 % (38.2-49.6)
== END 2021-08-11 15:33 | disposition home or self-care (01) ==
LOC: ER 10:23
DX: K92.2 Gastrointestinal hemorrhage, unspecified (principal); U07.1 COVID-19; I10 Essential (primary) hypertension; I50.9 Heart failure, unspecified; I48.91 Unspecified atrial fibrillation
CPT/HCPCS: 36415; 74177; 80053; 83690; 85014; 85018; 85025; 86850; 86900; 99284; Q9967; U0002

== ENCOUNTER 2021-09-22 11:56 | Observation (INO) | payer MEDICARE ==
[2021-09-17 10:34] LABS: ALBUMIN 3.7 g/dL (3.5-5.0); ANION GAP 14.8 mmol/L (8-16); CALCIUM 8.7 mg/dL (8.4-10.2); CREATININE, SERUM 1.17 mg/dL (0.72-1.25); POTASSIUM 3.8 mmol/L (3.5-5.1)
[2021-09-17 11:17] LABS: BASOPHILS # (AUTO) 0.1 (0.0-0.1); BASOPHILS % 0.9 % (0.0-1.0); EOSINOPHILS # (AUTO) 0.2 (0.0-0.4); EOSINOPHILS % 2.8 % (0.0-6.0); HEMATOCRIT 41.9 % (38.2-49.6); HEMOGLOBIN 13.1 g/dL (14.0-18.0); LYMPHOCYTES # (AUTO) 1.3 (1.0-3.2); LYMPHOCYTES % 24.2 % (18.0-39.1); MEAN CORPUSCULAR HEMOGLOBIN 28.7 pg (28-32); MEAN CORPUSCULAR HGB CONC 31.3 g/dL (31-35); MEAN CORPUSCULAR VOLUME 91.7 fL (81-99); MONOCYTES # (AUTO) 0.4 (0.2-0.8); MONOCYTES % 8.3 % (4.4-11.3); NEUTROPHILS # (AUTO) 3.4 (2.1-6.9); NEUTROPHILS % 63.6 % (38.7-80.0); PLATELET COUNT 169 x10e3/uL (140-360); RED BLOOD COUNT 4.57 x10e6/uL (4.3-5.7)
[~2021-09-22] VITALS: Ht 172.7 cm; Wt 81.6 kg
[2021-09-22] MEDS ORDERED: ALPRAZOLAM 0.5 MG TAB ONE (12:54)
[2021-09-22] MEDS ORDERED: DIPHENHYDRAMINE HCL 25 MG CAP ONE (12:54)
[2021-09-22 12:59] VITALS: BP 150/89
[2021-09-22] MEDS ORDERED: MIDAZOLAM HCL 2 MG/2 ML VIAL ONE ×2 (15:38→17:20)
[2021-09-22] MEDS ORDERED: HEPARIN SOD/SOD CHLORIDE 2,000 ML ONE ×2 (15:39→16:46)
[2021-09-22] MEDS ORDERED: IOPAMIDOL 370 MG/ML 100 ML INFUS..BTL INJ ONE ×2 (15:39→16:46)
[2021-09-22] MEDS ORDERED: SODIUM CHLORIDE 0.9% 1000ML 1,000 ML ONE ×2 (15:39→16:47)
[2021-09-22] MEDS ORDERED: FENTANYL CITRATE/PF 100MCG/2 ML INJ ONE (15:39)
[2021-09-22] MEDS ORDERED: LIDOCAINE HCL 1% LOCAL INJ 20 ML VIAL ONE ×2 (15:39→16:50)
[2021-09-22] MEDS ORDERED: BIVALRIUDIN 250 MG/VIAL VIAL IV ONE (17:02)
[2021-09-22] MEDS ORDERED: PRASUGREL 10 MG TAB ONE (17:34)
[2021-09-22] MEDS ORDERED: ASPIRIN 325 MG TAB ONE (17:34)
[2021-09-22] MEDS ORDERED: ONDANSETRON HCL INJ 2MG/ML 2ML 2 MG/ML VIAL IV PRN (17:45)
[2021-09-22] MEDS ORDERED: HYDROCODONE/APAP 5MG-325MG TAB PO PRN (17:45)
[2021-09-22] MEDS ORDERED: ACETAMINOPHEN 325 MG TAB PO PRN (17:45)
[2021-09-22] MEDS ORDERED: Morphine 2mg Syringe 2 MG/ML SYR IV PRN (17:45)
[2021-09-22] MEDS ORDERED: Morphine 4mg INJECTION 4 MG/ML INJ IV PRN (17:45)
[2021-09-22] MEDS: SODIUM CHLORIDE 0.9% 1000ML 1,000 ML IV SCH (20:08)
[2021-09-22 20:18] VITALS: BP 156/82
[2021-09-22] MEDS ORDERED: ZOLPIDEM TARTRATE 5 MG TAB PO PRN (21:00)
[2021-09-22 22:35] VITALS: BP 156/82
[2021-09-23] VITALS: BP 106/58
[2021-09-23 04:00] VITALS: BP 132/66
[2021-09-23 05:08] LABS: BASOPHILS # (AUTO) 0.1 (0.0-0.1); BASOPHILS % 0.9 % (0.0-1.0); EOSINOPHILS # (AUTO) 0.1 (0.0-0.4); EOSINOPHILS % 2.1 % (0.0-6.0); HEMATOCRIT 36.8 % (38.2-49.6); HEMOGLOBIN 11.8 g/dL (14.0-18.0); LYMPHOCYTES # (AUTO) 0.9 (1.0-3.2); LYMPHOCYTES % 16.9 % (18.0-39.1); MEAN CORPUSCULAR HEMOGLOBIN 29.1 pg (28-32); MEAN CORPUSCULAR HGB CONC 32.1 g/dL (31-35); MEAN CORPUSCULAR VOLUME 90.9 fL (81-99); MONOCYTES # (AUTO) 0.4 (0.2-0.8); MONOCYTES % 6.8 % (4.4-11.3); NEUTROPHILS # (AUTO) 3.9 (2.1-6.9); NEUTROPHILS % 72.9 % (38.7-80.0); PLATELET COUNT 150 x10e3/uL (140-360); RED BLOOD COUNT 4.05 x10e6/uL (4.3-5.7); RED CELL DISTRIBUTION WIDTH 14.1 % (11.7-14.4)
[2021-09-23 05:29] LABS: ANION GAP 11.6 mmol/L (8-16); CALCIUM 8.4 mg/dL (8.4-10.2); CREATININE, SERUM 0.85 mg/dL (0.72-1.25); POTASSIUM 3.6 mmol/L (3.5-5.1)
[2021-09-23 08:00] VITALS: BP 125/82
[2021-09-23 08:10] VITALS: BP 125/82
[2021-09-23] MEDS: SODIUM CHLORIDE 0.9% 1000ML 1,000 ML IV SCH (08:54)
[2021-09-23] MEDS ORDERED: LOSARTAN POTASSIUM 100 MG TAB PO SCH (09:00)
[2021-09-23] MEDS ORDERED: AMLODIPINE BESYLATE 5 MG TAB PO SCH (09:00)
[2021-09-23] MEDS ORDERED: HYDROCHLOROTHIAZIDE 25 MG TAB PO SCH (09:00)
[2021-09-23] MEDS ORDERED: METOPROLOL SUCCINATE 50 MG TAB XL PO SCH (09:00)
[2021-09-23] MEDS ORDERED: ASPIRIN 81 MG CHEW TAB PO SCH (09:00)
== END 2021-09-23 12:08 | disposition home or self-care (01) ==
LOC: CATH LAB 11:56 → MED/SURG3 19:25
PROVIDERS: ADMIT Internal Medicine Interventional Cardiology; ATTEND Internal Medicine Interventional Cardiology
DX: I25.10 Atherosclerotic heart disease of native coronary artery without angina pectoris (principal); Z01.812 Encounter for preprocedural laboratory examination; Z95.810 Presence of automatic (implantable) cardiac defibrillator; Z20.822 Contact with and (suspected) exposure to COVID-19; I50.9 Heart failure, unspecified
CPT/HCPCS: 93458; C9600; C9601; 36415; 80048; 80053; 83880; 85025; 92928; 99152; 99153; C1725; C1760; C1769; C1874; C1894; G0378; J0583; J2001; J2250; J3010; J7030; Q9967

== ENCOUNTER 2022-08-25 07:06 | Observation (INO) | payer MEDICARE ==
[~2022-08-25] VITALS: Ht 172.7 cm; Wt 81.6 kg
[2022-08-25] MEDS ORDERED: SODIUM CHLORIDE 0.9% 500ML 500 ML IV ONE (07:30)
[2022-08-25 07:38] LABS: BASOPHILS # (AUTO) 0.1 (0.0-0.1); BASOPHILS % 0.9 % (0.0-1.0); EOSINOPHILS # (AUTO) 0.1 (0.0-0.4); HEMATOCRIT 42.5 % (38.2-49.6); HEMOGLOBIN 14.2 g/dL (14.0-18.0); LYMPHOCYTES # (AUTO) 1.8 (1.0-3.2); LYMPHOCYTES % 33.3 % (18.0-39.1); MEAN CORPUSCULAR HEMOGLOBIN 30.8 pg (28-32); MEAN CORPUSCULAR HGB CONC 33.4 g/dL (31-35); MEAN CORPUSCULAR VOLUME 92.2 fL (81-99); MONOCYTES # (AUTO) 0.4 (0.2-0.8); MONOCYTES % 7.5 % (4.4-11.3); NEUTROPHILS # (AUTO) 3.1 (2.1-6.9); NEUTROPHILS % 55.9 % (38.7-80.0); PLATELET COUNT 150 x10e3/uL (140-360); RED BLOOD COUNT 4.61 x10e6/uL (4.3-5.7)
[2022-08-25 07:51] LABS: INR 0.92; PROTHROMBIN TIME 12.9 seconds (11.9-14.5)
[2022-08-25 07:52] LABS: PARTIAL THROMBOPLASTIN TIME 32.6 seconds (23.8-35.5)
[2022-08-25 08:04] LABS: ALANINE AMINOTRANSFERASE 15 IU/L (0-55); ALBUMIN/GLOBULIN RATIO 1.2 (0.8-2.0); ALKALINE PHOSPHATASE 104 IU/L (40-150); ANION GAP 13.4 mmol/L (8-16); BLOOD UREA NITROGEN 22 mg/dL (7-26); BUN/CREATININE RATIO 21 (6-25); CALCIUM 8.9 mg/dL (8.4-10.2); CARBON DIOXIDE 25 mmol/L (22-29); CHLORIDE 107 mmol/L (98-107); CREATININE, SERUM 1.06 mg/dL (0.72-1.25); GLUCOSE 101 mg/dL (74-118); MAGNESIUM 1.7 MG/DL (1.3-2.1); POTASSIUM 3.4 mmol/L (3.5-5.1); SODIUM 142 mmol/L (136-145)
[2022-08-25 08:10] LABS: CLARITY,URINE CLEAR (CLEAR); COLOR,URINE YELLOW (YELLOW); KETONES,URINE NEGATIVE (NEGATIVE); LEUKOCYTE ESTERASE ,URINE NEGATIVE (NEGATIVE); NITRITE,URINE NEGATIVE (NEGATIVE); PROTEIN,URINE DIPSTICK NEGATIVE (NEGATIVE); URINE UROBILINOGEN 0.2 mg/dL (0.2 - 1)
[2022-08-25 08:50] LABS: BACTERIA,URINE RARE /HPF; EPITHELIAL CELLS,URINE RARE /LPF; RBC,URINE 0-5 /HPF (0-5); WBC,URINE (MAN) 0-5 /HPF (0-5)
[2022-08-25] MEDS ORDERED: SODIUM CHLORIDE 0.9% 1000ML 1,000 ML IV ONE (09:15)
[2022-08-25] MEDS ORDERED: SODIUM CHLORIDE 0.9% 100 ML ONE (10:23)
[2022-08-25] MEDS ORDERED: IOPAMIDOL 370 MG/ML 100 ML INFUS..BTL INJ ONE (10:23)
[2022-08-25 12:16] LABS: BASOPHILS % 0.7 % (0.0-1.0); EOSINOPHILS % 0.3 % (0.0-6.0); HEMATOCRIT 42.1 % (38.2-49.6); HEMOGLOBIN 13.9 g/dL (14.0-18.0); LYMPHOCYTES # (AUTO) 1.1 (1.0-3.2); LYMPHOCYTES % 19.2 % (18.0-39.1); MEAN CORPUSCULAR HEMOGLOBIN 30.6 pg (28-32); MEAN CORPUSCULAR VOLUME 92.7 fL (81-99); MONOCYTES # (AUTO) 0.3 (0.2-0.8); MONOCYTES % 5.4 % (4.4-11.3); NEUTROPHILS # (AUTO) 4.4 (2.1-6.9); NEUTROPHILS % 73.9 % (38.7-80.0); PLATELET COUNT 146 x10e3/uL (140-360); RED BLOOD COUNT 4.54 x10e6/uL (4.3-5.7); RED CELL DISTRIBUTION WIDTH 13.1 % (11.7-14.4)
[2022-08-25 15:30] VITALS: BP 142/82; PULSE 68; RESP 18; TEMP 97.7; O2SAT 95
[2022-08-25 16:19] VITALS: BP 156/91; PULSE 68; RESP 16; TEMP 97.7; O2SAT 95
[2022-08-25] MEDS ORDERED: D5.45%NS/KCL 20MEQ 1,000 ML IV ONE (16:45)
[2022-08-25] MEDS ORDERED: HYDRALAZINE HCL 20 MG/ML VIAL IV PRN (16:45)
[2022-08-25] MEDS ORDERED: ONDANSETRON HCL INJ 2MG/ML 2ML 2 MG/ML VIAL IV PRN (16:45)
[2022-08-25] MEDS ORDERED: ACETAMINOPHEN 325 MG TAB PO PRN (16:45)
[2022-08-25 17:26] VITALS: PULSE 61; RESP 16; O2SAT 94
[2022-08-25 18:19] LABS: BASOPHILS % 0.7 % (0.0-1.0); EOSINOPHILS # (AUTO) 0.1 (0.0-0.4); EOSINOPHILS % 1.4 % (0.0-6.0); HEMATOCRIT 40.9 % (38.2-49.6); HEMOGLOBIN 13.7 g/dL (14.0-18.0); LYMPHOCYTES % 16.8 % (18.0-39.1); MEAN CORPUSCULAR HEMOGLOBIN 31.2 pg (28-32); MEAN CORPUSCULAR HGB CONC 33.5 g/dL (31-35); MEAN CORPUSCULAR VOLUME 93.2 fL (81-99); MONOCYTES # (AUTO) 0.3 (0.2-0.8); NEUTROPHILS # (AUTO) 4.2 (2.1-6.9); NEUTROPHILS % 74.6 % (38.7-80.0); PLATELET COUNT 127 x10e3/uL (140-360); RED BLOOD COUNT 4.39 x10e6/uL (4.3-5.7)
[2022-08-25 20:00] VITALS: BP 165/85; PULSE 65; RESP 18; TEMP 98.6; O2SAT 97
[2022-08-25 21:00] VITALS: BP 165/80; PULSE 65; RESP 18; TEMP 98.6; O2SAT 97
[2022-08-25] MEDS ORDERED: TEMAZEPAM 15 MG CAP PO PRN (21:00)
[2022-08-26 00:10] VITALS: BP 150/79; PULSE 64; RESP 18; TEMP 98.2; O2SAT 96
[2022-08-26 04:00] VITALS: BP 143/85; PULSE 67; RESP 18; TEMP 97.7; O2SAT 98
[2022-08-26 04:58] LABS: BASOPHILS # (AUTO) 0.1 (0.0-0.1); BASOPHILS % 0.8 % (0.0-1.0); EOSINOPHILS # (AUTO) 0.1 (0.0-0.4); EOSINOPHILS % 1.5 % (0.0-6.0); HEMATOCRIT 40.4 % (38.2-49.6); HEMOGLOBIN 13.4 g/dL (14.0-18.0); LYMPHOCYTES # (AUTO) 0.9 (1.0-3.2); LYMPHOCYTES % 15.4 % (18.0-39.1); MEAN CORPUSCULAR HEMOGLOBIN 30.2 pg (28-32); MEAN CORPUSCULAR HGB CONC 33.2 g/dL (31-35); MEAN CORPUSCULAR VOLUME 91.2 fL (81-99); MONOCYTES # (AUTO) 0.5 (0.2-0.8); MONOCYTES % 7.5 % (4.4-11.3); NEUTROPHILS # (AUTO) 4.5 (2.1-6.9); NEUTROPHILS % 74.5 % (38.7-80.0); PLATELET COUNT 143 x10e3/uL (140-360); RED BLOOD COUNT 4.43 x10e6/uL (4.3-5.7); RED CELL DISTRIBUTION WIDTH 12.8 % (11.7-14.4)
[2022-08-26 05:17] LABS: ANION GAP 12.3 mmol/L (8-16); CALCIUM 8.7 mg/dL (8.4-10.2); CREATININE, SERUM 0.82 mg/dL (0.72-1.25); MAGNESIUM 1.7 MG/DL (1.3-2.1); PHOSPHORUS 2.5 MG/DL (2.3-4.7); POTASSIUM 3.3 mmol/L (3.5-5.1)
[2022-08-26 08:17] VITALS: BP 162/84; PULSE 65; RESP 17; TEMP 97.7; O2SAT 96
[2022-08-26 08:30] VITALS: BP 162/84; PULSE 65; RESP 17; TEMP 97.7; O2SAT 96
[2022-08-26 13:03] VITALS: BP 150/86; PULSE 69; RESP 16; TEMP 97.9; O2SAT 95
== END 2022-08-26 13:26 | disposition home or self-care (01) ==
LOC: ER 07:15 → ERHOLD 09:19 → MED/SURG 15:15
PROVIDERS: ADMIT Internal Medicine; ATTEND Internal Medicine
DX: K57.31 Diverticulosis of large intestine without perforation or abscess with bleeding (principal); E86.0 Dehydration; E87.6 Hypokalemia; N20.1 Calculus of ureter; I11.0 Hypertensive heart disease with heart failure; I50.22 Chronic systolic (congestive) heart failure; I25.10 Atherosclerotic heart disease of native coronary artery without angina pectoris; Z95.5 Presence of coronary angioplasty implant and graft; I48.20 Chronic atrial fibrillation, unspecified; Z95.810 Presence of automatic (implantable) cardiac defibrillator; I44.7 Left bundle-branch block, unspecified; Z79.899 Other long term (current) drug therapy; Z79.82 Long term (current) use of aspirin
CPT/HCPCS: 0223U; 36415 ×2; 71045; 74174; 80048; 80053; 81001; 83735 ×2; 84100; 84484; 85025 ×2; 85610; 85730; 86850; 86900; 87324; 87449; 93005; 94799; 99284; C9113 ×2; G0378 ×2; J0360; J7030; J7040; J7050; Q9967

== ENCOUNTER 2022-10-08 08:05 | Observation (INO) | payer MEDICARE ==
[~2022-10-08] VITALS: Ht 172.7 cm; Wt 81.6 kg
[2022-10-08] MEDS ORDERED: ONDANSETRON HCL INJ 2MG/ML 2ML 2 MG/ML VIAL IV STA (08:19)
[2022-10-08] MEDS ORDERED: SODIUM CHLORIDE 0.9% 1000ML 1,000 ML IV ONE (08:30)
[2022-10-08 08:35] LABS: BASOPHILS # (AUTO) 0.1 (0.0-0.1); BASOPHILS % 0.9 % (0.0-1.0); EOSINOPHILS # (AUTO) 0.2 (0.0-0.4); EOSINOPHILS % 2.8 % (0.0-6.0); HEMATOCRIT 42.4 % (38.2-49.6); HEMOGLOBIN 14.1 g/dL (14.0-18.0); LYMPHOCYTES # (AUTO) 1.9 (1.0-3.2); LYMPHOCYTES % 32.6 % (18.0-39.1); MEAN CORPUSCULAR HEMOGLOBIN 30.7 pg (28-32); MEAN CORPUSCULAR HGB CONC 33.3 g/dL (31-35); MEAN CORPUSCULAR VOLUME 92.4 fL (81-99); MONOCYTES # (AUTO) 0.5 (0.2-0.8); MONOCYTES % 7.8 % (4.4-11.3); NEUTROPHILS # (AUTO) 3.2 (2.1-6.9); NEUTROPHILS % 55.6 % (38.7-80.0); PLATELET COUNT 162 x10e3/uL (140-360); RED BLOOD COUNT 4.59 x10e6/uL (4.3-5.7); RED CELL DISTRIBUTION WIDTH 12.7 % (11.7-14.4)
[2022-10-08 09:02] LABS: ALBUMIN/GLOBULIN RATIO 1.2 (0.8-2.0); ANION GAP 13.6 mmol/L (8-16); CALCIUM 8.9 mg/dL (8.4-10.2); CREATININE, SERUM 1.06 mg/dL (0.72-1.25); POTASSIUM 3.6 mmol/L (3.5-5.1)
[2022-10-08] MEDS ORDERED: IOPAMIDOL 370 MG/ML 100 ML INFUS..BTL INJ ONE (09:49)
[2022-10-08] MEDS ORDERED: ONDANSETRON HCL INJ 2MG/ML 2ML 2 MG/ML VIAL IV PRN (10:30)
[2022-10-08] MEDS: SODIUM CHLORIDE 0.9% 1000ML 1,000 ML IV SCH ×2 (12:00→22:47)
[2022-10-08 12:44] LABS: CLARITY,URINE CLEAR (CLEAR); COLOR,URINE YELLOW (YELLOW)
[2022-10-08 12:45] LABS: KETONES,URINE NEGATIVE (NEGATIVE); LEUKOCYTE ESTERASE ,URINE NEGATIVE (NEGATIVE); NITRITE,URINE NEGATIVE (NEGATIVE); PROTEIN,URINE DIPSTICK NEGATIVE (NEGATIVE); URINE UROBILINOGEN 0.2 mg/dL (0.2 - 1)
[2022-10-08 12:52] LABS: BACTERIA,URINE FEW /HPF; EPITHELIAL CELLS,URINE FEW /LPF; WBC,URINE (MAN) 0-5 /HPF (0-5)
[2022-10-08 14:15] LABS: % IRON SATURATION 30 % (15-50); IRON 110 ug/dL (65-175); TOTAL IRON BINDING CAPACITY 363 ug/dL (261-478); TRANSFERRIN 259 mg/dL (174-364)
[2022-10-08 15:38] LABS: HEMATOCRIT 43.8 % (38.2-49.6); HEMOGLOBIN 14.7 g/dL (14.0-18.0)
[2022-10-08 19:10] LABS: HEMATOCRIT 44.5 % (38.2-49.6); HEMOGLOBIN 15.1 g/dL (14.0-18.0)
[2022-10-08 20:15] VITALS: BP 162/85; PULSE 75; RESP 18; TEMP 97.8; O2SAT 99
[2022-10-08 20:49] VITALS: BP 162/85; PULSE 75; RESP 18; TEMP 97.8; O2SAT 98
[2022-10-09] VITALS: BP 144/89; PULSE 64; RESP 18; TEMP 98.1; O2SAT 98
[2022-10-09 04:55] VITALS: BP 127/82; PULSE 60; RESP 18; TEMP 98.2; O2SAT 98
[2022-10-09 07:09] LABS: BASOPHILS # (AUTO) 0.1 (0.0-0.1); BASOPHILS % 1.1 % (0.0-1.0); EOSINOPHILS # (AUTO) 0.1 (0.0-0.4); EOSINOPHILS % 2.1 % (0.0-6.0); HEMATOCRIT 41.8 % (38.2-49.6); HEMOGLOBIN 13.7 g/dL (14.0-18.0); LYMPHOCYTES # (AUTO) 1.2 (1.0-3.2); LYMPHOCYTES % 21.5 % (18.0-39.1); MEAN CORPUSCULAR HEMOGLOBIN 30.2 pg (28-32); MEAN CORPUSCULAR HGB CONC 32.8 g/dL (31-35); MEAN CORPUSCULAR VOLUME 92.3 fL (81-99); MONOCYTES # (AUTO) 0.4 (0.2-0.8); MONOCYTES % 7.6 % (4.4-11.3); NEUTROPHILS # (AUTO) 3.6 (2.1-6.9); NEUTROPHILS % 67.5 % (38.7-80.0); PLATELET COUNT 159 x10e3/uL (140-360); RED BLOOD COUNT 4.53 x10e6/uL (4.3-5.7); RED CELL DISTRIBUTION WIDTH 12.8 % (11.7-14.4)
[2022-10-09] MEDS ORDERED: PANTOPRAZOLE SOD 40 MG TABEC PO SCH (07:30)
[2022-10-09 07:32] LABS: ALBUMIN 3.6 g/dL (3.5-5.0); ALBUMIN/GLOBULIN RATIO 1.1 (0.8-2.0); ANION GAP 13.8 mmol/L (8-16); CALCIUM 8.9 mg/dL (8.4-10.2); CREATININE, SERUM 1.02 mg/dL (0.72-1.25); POTASSIUM 3.8 mmol/L (3.5-5.1)
[2022-10-09 07:35] VITALS: BP 152/81; PULSE 64; RESP 20; TEMP 97.7; O2SAT 96
[2022-10-09] MEDS ORDERED: AMLODIPINE BESYLATE 5 MG TAB PO SCH (09:00)
[2022-10-09 11:48] VITALS: BP 146/82; PULSE 63; RESP 17; TEMP 98.1; O2SAT 99
[2022-10-09 15:27] VITALS: BP 135/81; PULSE 74; RESP 21; TEMP 98.3; O2SAT 98
[2022-10-09] MEDS ORDERED: ATORVASTATIN 40 MG TAB PO SCH (21:00)
== END 2022-10-09 16:30 | disposition home or self-care (01) ==
LOC: ER 08:15 → ERHOLD 10:30 → MED/SURG 20:15
PROVIDERS: ADMIT Family Medicine; ATTEND Family Medicine
DX: K57.31 Diverticulosis of large intestine without perforation or abscess with bleeding (principal); E78.5 Hyperlipidemia, unspecified; I10 Essential (primary) hypertension; I11.0 Hypertensive heart disease with heart failure; I50.9 Heart failure, unspecified; I48.91 Unspecified atrial fibrillation
CPT/HCPCS: 36415 ×2; 74177; 80053 ×2; 81001; 83540; 83690; 84466; 85014; 85018; 85025 ×2; 86850; 86900; 99284; C9113 ×2; G0378 ×2; J2405; J7030; Q9967; S0164; U0002

== ENCOUNTER 2024-03-11 17:07 | Inpatient (IN) | payer MEDICARE ==
[~2024-03-11] VITALS: Ht 172.7 cm; Wt 79.4 kg
[~2024-03-11 17:07] MED LIST changes: +ACETAMINOPHEN-1 EAC4 PO
[2024-03-11 17:44] LABS: BASOPHILS # (AUTO) 0.1 (0.0-0.1); BASOPHILS % 0.7 % (0.0-1.0); EOSINOPHILS # (AUTO) 0.2 (0.0-0.4); EOSINOPHILS % 2.1 % (0.0-6.0); HEMATOCRIT 45.9 % (38.2-49.6); HEMOGLOBIN 14.7 g/dL (14.0-18.0); LYMPHOCYTES # (AUTO) 2.1 (1.0-3.2); LYMPHOCYTES % 27.2 % (18.0-39.1); MEAN CORPUSCULAR HEMOGLOBIN 30.8 pg (28-32); MONOCYTES # (AUTO) 0.9 (0.2-0.8); MONOCYTES % 11.2 % (4.4-11.3); NEUTROPHILS # (AUTO) 4.5 (2.1-6.9); NEUTROPHILS % 58.5 % (38.7-80.0); PLATELET COUNT 165 x10e3/uL (140-360); RED BLOOD COUNT 4.78 x10e6/uL (4.3-5.7); RED CELL DISTRIBUTION WIDTH 12.8 % (11.7-14.4); WHITE BLOOD COUNT 7.62 x10e3/uL (4.8-10.8)
[2024-03-11 17:58] LABS: ALBUMIN 4.1 g/dL (3.5-5.0); ALBUMIN/GLOBULIN RATIO 1.1 (0.8-2.0); ANION GAP 16.6 mmol/L (8-16); CALCIUM 9.5 mg/dL (8.4-10.2); CREATININE, SERUM 1.23 mg/dL (0.72-1.25); POTASSIUM 3.6 mmol/L (3.5-5.1); TOTAL PROTEIN 7.9 g/dL (6.5-8.1)
[2024-03-11] MEDS ORDERED: IOPAMIDOL 370 MG/ML 100 ML INFUS..BTL INJ ONE (18:11)
[2024-03-11 19:32] VITALS: PULSE 89; RESP 19
[2024-03-11 20:00] VITALS: BP 135/81; PULSE 83; RESP 18; TEMP 98.2; O2SAT 98
[2024-03-11] MEDS ORDERED: CLOPIDOGREL75 MG PO (20:41)
[2024-03-11 21:00] VITALS: BP 135/81; PULSE 83; RESP 18; TEMP 98.2; O2SAT 98
[2024-03-11 22:25] VITALS: BP 135/81; PULSE 83; RESP 18; TEMP 98.2; O2SAT 98
[2024-03-11 23:21] LABS: INR 1.08; PROTHROMBIN TIME 14.7 seconds (11.9-14.5)
[2024-03-12] VITALS (8 sets, daily range): BP systolic 101–141; BP diastolic 60–77; PULSE 65–136; RESP 17–18; TEMP 97.4–98.4; O2SAT 95–98
[2024-03-12 02:13] LABS: BASOPHILS % 0.4 % (0.0-1.0); EOSINOPHILS % 0.1 % (0.0-6.0); HEMOGLOBIN 12.4 g/dL (14.0-18.0); LYMPHOCYTES # (AUTO) 0.8 (1.0-3.2); LYMPHOCYTES % 7.8 % (18.0-39.1); MEAN CORPUSCULAR HEMOGLOBIN 31.2 pg (28-32); MEAN CORPUSCULAR HGB CONC 32.6 g/dL (31-35); MEAN CORPUSCULAR VOLUME 95.7 fL (81-99); MONOCYTES # (AUTO) 0.3 (0.2-0.8); MONOCYTES % 3.3 % (4.4-11.3); NEUTROPHILS # (AUTO) 8.8 (2.1-6.9); NEUTROPHILS % 88.2 % (38.7-80.0); PLATELET COUNT 155 x10e3/uL (140-360); RED BLOOD COUNT 3.97 x10e6/uL (4.3-5.7); WHITE BLOOD COUNT 9.96 x10e3/uL (4.8-10.8)
[2024-03-12] MEDS: SODIUM CHLORIDE 0.9% 1000ML 1,000 ML IV SCH (11:20)
[2024-03-12 12:47] LABS: HEMATOCRIT 31.6 % (38.2-49.6); HEMOGLOBIN 10.1 g/dL (14.0-18.0)
[2024-03-12] MEDS: METOPROLOL SUCCINATE 50 MG TAB XL PO SCH (18:04)
[2024-03-12 22:24] LABS: HEMATOCRIT 26.9 % (38.2-49.6); HEMOGLOBIN 8.7 g/dL (14.0-18.0)
[2024-03-13] VITALS (8 sets, daily range): BP systolic 114–131; BP diastolic 64–76; PULSE 65–80; RESP 18–20; TEMP 97.7–98.1; O2SAT 97–100
[2024-03-13 01:13] LABS: HEMATOCRIT 26.3 % (38.2-49.6); HEMOGLOBIN 8.7 g/dL (14.0-18.0)
[2024-03-13] MEDS: SODIUM CHLORIDE 0.9% 250ML 250 ML IV ONE (07:55)
[2024-03-13] MEDS: SODIUM CHLORIDE 0.9% 250ML 250 ML ONE ×2 (07:55)
[2024-03-13] MEDS: AMLODIPINE BESYLATE 5 MG TAB PO SCH (08:22)
[2024-03-13 08:50] LABS: BASOPHILS # (AUTO) 0.1 (0.0-0.1); BASOPHILS % 0.8 % (0.0-1.0); EOSINOPHILS # (AUTO) 0.1 (0.0-0.4); EOSINOPHILS % 0.8 % (0.0-6.0); HEMATOCRIT 24.9 % (38.2-49.6); HEMOGLOBIN 8.2 g/dL (14.0-18.0); MEAN CORPUSCULAR HEMOGLOBIN 31.1 pg (28-32); MEAN CORPUSCULAR HGB CONC 32.9 g/dL (31-35); MEAN CORPUSCULAR VOLUME 94.3 fL (81-99); MONOCYTES # (AUTO) 0.4 (0.2-0.8); MONOCYTES % 6.3 % (4.4-11.3); NEUTROPHILS # (AUTO) 4.5 (2.1-6.9); NEUTROPHILS % 75.6 % (38.7-80.0); PLATELET COUNT 166 x10e3/uL (140-360); RED BLOOD COUNT 2.64 x10e6/uL (4.3-5.7); RED CELL DISTRIBUTION WIDTH 13.3 % (11.7-14.4); WHITE BLOOD COUNT 5.99 x10e3/uL (4.8-10.8)
[2024-03-13 09:02] LABS: INR 1.1; PROTHROMBIN TIME 14.9 seconds (11.9-14.5)
[2024-03-13 09:09] LABS: ANION GAP 13.5 mmol/L (8-16); CALCIUM 8.6 mg/dL (8.4-10.2); CREATININE, SERUM 1.09 mg/dL (0.72-1.25); POTASSIUM 3.5 mmol/L (3.5-5.1)
[2024-03-13 23:48] LABS: BASOPHILS # (AUTO) 0.1 (0.0-0.1); EOSINOPHILS # (AUTO) 0.1 (0.0-0.4); EOSINOPHILS % 1.4 % (0.0-6.0); HEMATOCRIT 24.8 % (38.2-49.6); LYMPHOCYTES # (AUTO) 1.3 (1.0-3.2); LYMPHOCYTES % 22.1 % (18.0-39.1); MEAN CORPUSCULAR HEMOGLOBIN 30.5 pg (28-32); MEAN CORPUSCULAR HGB CONC 31.9 g/dL (31-35); MEAN CORPUSCULAR VOLUME 95.8 fL (81-99); MONOCYTES # (AUTO) 0.5 (0.2-0.8); MONOCYTES % 8.7 % (4.4-11.3); NEUTROPHILS # (AUTO) 3.9 (2.1-6.9); NEUTROPHILS % 66.3 % (38.7-80.0); PLATELET COUNT 180 x10e3/uL (140-360); RED BLOOD COUNT 2.59 x10e6/uL (4.3-5.7); RED CELL DISTRIBUTION WIDTH 13.1 % (11.7-14.4); WHITE BLOOD COUNT 5.85 x10e3/uL (4.8-10.8)
[2024-03-14] VITALS (15 sets, daily range): BP systolic 116–146; BP diastolic 63–76; PULSE 62–81; RESP 16–20; TEMP 97.9–99.7; O2SAT 95–99
[2024-03-14 00:08] LABS: HEMOGLOBIN 7.9 g/dL (14.0-18.0)
[2024-03-14 05:53] LABS: BASOPHILS # (AUTO) 0.1 (0.0-0.1); BASOPHILS % 1.1 % (0.0-1.0); EOSINOPHILS # (AUTO) 0.1 (0.0-0.4); EOSINOPHILS % 1.7 % (0.0-6.0); HEMATOCRIT 23.5 % (38.2-49.6); HEMOGLOBIN 7.7 g/dL (14.0-18.0); MEAN CORPUSCULAR HEMOGLOBIN 30.7 pg (28-32); MEAN CORPUSCULAR HGB CONC 32.8 g/dL (31-35); MEAN CORPUSCULAR VOLUME 93.6 fL (81-99); MONOCYTES # (AUTO) 0.5 (0.2-0.8); MONOCYTES % 8.5 % (4.4-11.3); NEUTROPHILS # (AUTO) 3.7 (2.1-6.9); NEUTROPHILS % 69.6 % (38.7-80.0); PLATELET COUNT 182 x10e3/uL (140-360); RED BLOOD COUNT 2.51 x10e6/uL (4.3-5.7); RED CELL DISTRIBUTION WIDTH 13.2 % (11.7-14.4); WHITE BLOOD COUNT 5.29 x10e3/uL (4.8-10.8)
[2024-03-14 06:19] LABS: ANION GAP 11.7 mmol/L (8-16); CALCIUM 8.4 mg/dL (8.4-10.2); CREATININE, SERUM 0.97 mg/dL (0.72-1.25); PHOSPHORUS 2.6 MG/DL (2.3-4.7); POTASSIUM 3.7 mmol/L (3.5-5.1)
[2024-03-14] MEDS: SODIUM CHLORIDE 0.9% 250ML 250 ML IV ONE (15:18)
[2024-03-14 15:40] LABS: FERRITIN 115.32 ng/mL (21.81-274.66)
[2024-03-14] MEDS: CYANOCOBALAMIN INJ 1,000 MCG/ML VIAL IM ONE (17:28)
[2024-03-15] VITALS (8 sets, daily range): BP systolic 101–148; BP diastolic 60–77; PULSE 64–100; RESP 18; TEMP 98–98.3; O2SAT 95–99
[2024-03-15] MEDS: SODIUM CHLORIDE 0.9% 250ML 250 ML ONE (07:40)
[2024-03-15 07:54] LABS: BASOPHILS # (AUTO) 0.1 (0.0-0.1); EOSINOPHILS # (AUTO) 0.1 (0.0-0.4); EOSINOPHILS % 1.9 % (0.0-6.0); HEMOGLOBIN 9.1 g/dL (14.0-18.0); LYMPHOCYTES # (AUTO) 1.1 (1.0-3.2); LYMPHOCYTES % 19.3 % (18.0-39.1); MEAN CORPUSCULAR HEMOGLOBIN 30.7 pg (28-32); MEAN CORPUSCULAR HGB CONC 33.7 g/dL (31-35); MEAN CORPUSCULAR VOLUME 91.2 fL (81-99); MONOCYTES # (AUTO) 0.4 (0.2-0.8); NEUTROPHILS % 69.4 % (38.7-80.0); PLATELET COUNT 201 x10e3/uL (140-360); RED BLOOD COUNT 2.96 x10e6/uL (4.3-5.7); RED CELL DISTRIBUTION WIDTH 14.5 % (11.7-14.4); WHITE BLOOD COUNT 5.74 x10e3/uL (4.8-10.8)
[2024-03-15 08:20] LABS: ANION GAP 11.3 mmol/L (8-16); CALCIUM 8.7 mg/dL (8.4-10.2); CREATININE, SERUM 0.9 mg/dL (0.72-1.25)
[2024-03-15 08:23] LABS: POTASSIUM 3.3 mmol/L (3.5-5.1)
[2024-03-15] MEDS: IRON SUCROSE 100 MG in SODIUM CHLORIDE 0.9% 100 ML IV SCH (08:59)
[2024-03-15] MEDS: CYANOCOBALAMIN 1,000 MCG TAB PO SCH (09:01)
[2024-03-15] MEDS: POTASSIUM CHLORIDE 20 MEQ TAB CR PO ONE (14:39)
[2024-03-16] VITALS (7 sets, daily range): BP systolic 116–139; BP diastolic 69–79; PULSE 60–85; RESP 18–21; TEMP 97.8–98.5; O2SAT 95–99
[2024-03-16 05:45] LABS: HEMATOCRIT 27.9 % (38.2-49.6); HEMOGLOBIN 8.9 g/dL (14.0-18.0)
[2024-03-17 00:41] VITALS: BP 114/55; PULSE 66; RESP 18; TEMP 98.2; O2SAT 97
[2024-03-17 04:00] VITALS: BP 122/78; PULSE 74; RESP 17; TEMP 98.4; O2SAT 99
[2024-03-17 06:26] LABS: BASOPHILS # (AUTO) 0.1 (0.0-0.1); BASOPHILS % 0.8 % (0.0-1.0); EOSINOPHILS # (AUTO) 0.1 (0.0-0.4); EOSINOPHILS % 2.2 % (0.0-6.0); HEMATOCRIT 29.5 % (38.2-49.6); HEMOGLOBIN 9.3 g/dL (14.0-18.0); MEAN CORPUSCULAR HEMOGLOBIN 30.6 pg (28-32); MEAN CORPUSCULAR HGB CONC 31.5 g/dL (31-35); MONOCYTES # (AUTO) 0.5 (0.2-0.8); MONOCYTES % 7.5 % (4.4-11.3); NEUTROPHILS # (AUTO) 4.7 (2.1-6.9); NEUTROPHILS % 72.6 % (38.7-80.0); PLATELET COUNT 221 x10e3/uL (140-360); RED BLOOD COUNT 3.04 x10e6/uL (4.3-5.7)
[2024-03-17 06:33] LABS: ANION GAP 12.5 mmol/L (8-16); CALCIUM 8.6 mg/dL (8.4-10.2); CREATININE, SERUM 0.91 mg/dL (0.72-1.25); POTASSIUM 3.5 mmol/L (3.5-5.1)
[2024-03-17 09:17] VITALS: BP 130/71; PULSE 80; RESP 20; TEMP 98; O2SAT 96
[2024-03-17 12:11] VITALS: BP 145/77; PULSE 60; RESP 19; TEMP 97.7; O2SAT 100
[2024-03-17] MEDS ORDERED: PANTOPRAZOLE SO40 MG PO (12:58)
== END 2024-03-17 14:44 | disposition home or self-care (01) | DRG 378 ==
LOC: ER 17:48 → ERHOLD 18:53 → MED/SURG2 20:22
PROVIDERS: ADMIT Internal Medicine; ATTEND Internal Medicine
PROC: 30233N1 Transfusion of Nonautologous Red Blood Cells into Peripheral Vein, Percutaneous Approach (ICD-10-PCS; principal; 2024-03-14)
PROC: 30233K1 Transfusion of Nonautologous Frozen Plasma into Peripheral Vein, Percutaneous Approach (ICD-10-PCS; 2024-03-14)
PROC: 30233R1 Transfusion of Nonautologous Platelets into Peripheral Vein, Percutaneous Approach (ICD-10-PCS; 2024-03-14)
DX: K62.5 Hemorrhage of anus and rectum (principal); D62 Acute posthemorrhagic anemia; I48.20 Chronic atrial fibrillation, unspecified; I50.22 Chronic systolic (congestive) heart failure; I11.0 Hypertensive heart disease with heart failure; I25.10 Atherosclerotic heart disease of native coronary artery without angina pectoris; Z79.01 Long term (current) use of anticoagulants; Z79.82 Long term (current) use of aspirin; Z95.5 Presence of coronary angioplasty implant and graft; Z95.810 Presence of automatic (implantable) cardiac defibrillator; Z87.891 Personal history of nicotine dependence
CPT/HCPCS: 36415; 36568; 74177; 80048; 80053; 82607; 82728; 82746; 83540; 83735; 84100; 84466; 85014; 85018; 85025; 85045; 85610; 86850; 86900; 86920; 93005; 99284; J1756; J2470; J3420; J7030; J7050; P9016; P9017; P9034; Q9967